=== PATIENT | female | born 1970 | race Caucasian/White ===

== ENCOUNTER → 2020-10-02 | Outpatient (CLI) | payer OTHER | LOC: WOUNDCARE 13:40 | PROVIDERS: ATTEND Nurse Practitioner | DX: I70.245 Atherosclerosis of native arteries of left leg with ulceration of other part of foot (principal); L97.522 Non-pressure chronic ulcer of other part of left foot with fat layer exposed; I73.9 Peripheral vascular disease, unspecified; M79.672 Pain in left foot; I10 Essential (primary) hypertension; Z87.891 Personal history of nicotine dependence; Z90.49 Acquired absence of other specified parts of digestive tract; Z95.5 Presence of coronary angioplasty implant and graft ==

== ENCOUNTER → 2020-10-09 | Outpatient (CLI) | payer OTHER | LOC: WOUNDCARE 03:01 | PROVIDERS: ATTEND Nurse Practitioner | DX: I70.245 Atherosclerosis of native arteries of left leg with ulceration of other part of foot (principal); L97.522 Non-pressure chronic ulcer of other part of left foot with fat layer exposed; I10 Essential (primary) hypertension; I73.9 Peripheral vascular disease, unspecified; M79.672 Pain in left foot; Z87.891 Personal history of nicotine dependence; Z90.49 Acquired absence of other specified parts of digestive tract; Z95.5 Presence of coronary angioplasty implant and graft ==

== ENCOUNTER → 2020-11-20 | Outpatient (CLI) | payer OTHER | LOC: WOUNDCARE 11-19 10:46 | PROVIDERS: ATTEND Nurse Practitioner | DX: T81.31XD Disruption of external operation (surgical) wound, not elsewhere classified, subsequent encounter (principal); S81.801D Unspecified open wound, right lower leg, subsequent encounter; S71.102D Unspecified open wound, left thigh, subsequent encounter; L97.528 Non-pressure chronic ulcer of other part of left foot with other specified severity; I10 Essential (primary) hypertension; I73.9 Peripheral vascular disease, unspecified; B49 Unspecified mycosis; Z87.891 Personal history of nicotine dependence; Z95.5 Presence of coronary angioplasty implant and graft; Z90.49 Acquired absence of other specified parts of digestive tract; Y83.5 Amputation of limb(s) as the cause of abnormal reaction of the patient, or of later complication, without mention of misadventure at the time of the procedure ==

== ENCOUNTER → 2020-12-07 | Outpatient (CLI) | payer OTHER | LOC: WOUNDCARE 05:12 | PROVIDERS: ATTEND Nurse Practitioner | DX: T81.31XD Disruption of external operation (surgical) wound, not elsewhere classified, subsequent encounter (principal); S81.801D Unspecified open wound, right lower leg, subsequent encounter; S71.102D Unspecified open wound, left thigh, subsequent encounter; L97.528 Non-pressure chronic ulcer of other part of left foot with other specified severity; I10 Essential (primary) hypertension; I73.9 Peripheral vascular disease, unspecified; B49 Unspecified mycosis; Z87.891 Personal history of nicotine dependence; Z95.5 Presence of coronary angioplasty implant and graft; Z90.49 Acquired absence of other specified parts of digestive tract; Y83.5 Amputation of limb(s) as the cause of abnormal reaction of the patient, or of later complication, without mention of misadventure at the time of the procedure ==

== ENCOUNTER → 2020-12-15 | Outpatient (CLI) | payer OTHER | LOC: WOUNDCARE 01:22 | PROVIDERS: ATTEND Nurse Practitioner | DX: T81.31XD Disruption of external operation (surgical) wound, not elsewhere classified, subsequent encounter (principal); S81.801D Unspecified open wound, right lower leg, subsequent encounter; S71.102D Unspecified open wound, left thigh, subsequent encounter; L97.528 Non-pressure chronic ulcer of other part of left foot with other specified severity; I10 Essential (primary) hypertension; I73.9 Peripheral vascular disease, unspecified; B49 Unspecified mycosis; Z87.891 Personal history of nicotine dependence; Z95.5 Presence of coronary angioplasty implant and graft; Z90.49 Acquired absence of other specified parts of digestive tract; X58.XXXD Exposure to other specified factors, subsequent encounter; Y83.5 Amputation of limb(s) as the cause of abnormal reaction of the patient, or of later complication, without mention of misadventure at the time of the procedure ==

== ENCOUNTER → 2020-12-23 | Outpatient (CLI) | payer OTHER | LOC: WOUNDCARE 05:36 | PROVIDERS: ATTEND Nurse Practitioner | DX: T81.31XD Disruption of external operation (surgical) wound, not elsewhere classified, subsequent encounter (principal); S81.801D Unspecified open wound, right lower leg, subsequent encounter; S71.102D Unspecified open wound, left thigh, subsequent encounter; L97.528 Non-pressure chronic ulcer of other part of left foot with other specified severity; I10 Essential (primary) hypertension; I73.9 Peripheral vascular disease, unspecified; B49 Unspecified mycosis; Z87.891 Personal history of nicotine dependence; X58.XXXD Exposure to other specified factors, subsequent encounter ==

== ENCOUNTER → 2020-12-30 | Outpatient (CLI) | payer OTHER | LOC: WOUNDCARE 02:14 | PROVIDERS: ATTEND Nurse Practitioner | DX: T81.31XD Disruption of external operation (surgical) wound, not elsewhere classified, subsequent encounter (principal); S81.801D Unspecified open wound, right lower leg, subsequent encounter; S71.102D Unspecified open wound, left thigh, subsequent encounter; L97.528 Non-pressure chronic ulcer of other part of left foot with other specified severity; I10 Essential (primary) hypertension; I73.9 Peripheral vascular disease, unspecified; B49 Unspecified mycosis; Z87.891 Personal history of nicotine dependence; X58.XXXD Exposure to other specified factors, subsequent encounter; Y83.8 Other surgical procedures as the cause of abnormal reaction of the patient, or of later complication, without mention of misadventure at the time of the procedure ==

== ENCOUNTER → 2021-01-07 | Outpatient (CLI) | payer OTHER | LOC: WOUNDCARE 01-06 00:57 | PROVIDERS: ATTEND Nurse Practitioner | DX: T81.31XD Disruption of external operation (surgical) wound, not elsewhere classified, subsequent encounter (principal); S81.801D Unspecified open wound, right lower leg, subsequent encounter; S71.102D Unspecified open wound, left thigh, subsequent encounter; L97.528 Non-pressure chronic ulcer of other part of left foot with other specified severity; I10 Essential (primary) hypertension; I73.9 Peripheral vascular disease, unspecified; B49 Unspecified mycosis; Z87.891 Personal history of nicotine dependence; X58.XXXD Exposure to other specified factors, subsequent encounter; Y83.8 Other surgical procedures as the cause of abnormal reaction of the patient, or of later complication, without mention of misadventure at the time of the procedure ==

== ENCOUNTER → 2021-01-14 | Outpatient (CLI) | payer OTHER | LOC: WOUNDCARE 01:58 | PROVIDERS: ATTEND Nurse Practitioner | DX: T81.31XD Disruption of external operation (surgical) wound, not elsewhere classified, subsequent encounter (principal); S81.801D Unspecified open wound, right lower leg, subsequent encounter; S71.102D Unspecified open wound, left thigh, subsequent encounter; L97.528 Non-pressure chronic ulcer of other part of left foot with other specified severity; I10 Essential (primary) hypertension; I73.9 Peripheral vascular disease, unspecified; B49 Unspecified mycosis; Z87.891 Personal history of nicotine dependence; X58.XXXD Exposure to other specified factors, subsequent encounter; Y83.8 Other surgical procedures as the cause of abnormal reaction of the patient, or of later complication, without mention of misadventure at the time of the procedure ==

== ENCOUNTER → 2021-01-21 | Outpatient (CLI) | payer OTHER | LOC: WOUNDCARE 01:41 | PROVIDERS: ATTEND Nurse Practitioner Primary Care | DX: T81.31XD Disruption of external operation (surgical) wound, not elsewhere classified, subsequent encounter (principal); L97.528 Non-pressure chronic ulcer of other part of left foot with other specified severity; S81.801D Unspecified open wound, right lower leg, subsequent encounter; S71.102D Unspecified open wound, left thigh, subsequent encounter; I10 Essential (primary) hypertension; I73.9 Peripheral vascular disease, unspecified; B49 Unspecified mycosis; Z87.891 Personal history of nicotine dependence; X58.XXXD Exposure to other specified factors, subsequent encounter; Y83.8 Other surgical procedures as the cause of abnormal reaction of the patient, or of later complication, without mention of misadventure at the time of the procedure ==

== ENCOUNTER 2021-05-27 20:17 | Emergency (ER) | payer OTHER ==
[~2021-05-27] VITALS: Ht 160 cm; Wt 117.9 kg
[2021-05-27] MEDS ORDERED: PLAVIX75 M1 PO (20:26)
[2021-05-27] MEDS ORDERED: ELIQUIS5 M1 PO (20:26)
[2021-05-27] MEDS ORDERED: LEXAPRO10 MG PO (20:26)
[2021-05-27] MEDS ORDERED: PRILOSEC20 M1 PO (20:26)
[2021-05-27] MEDS ORDERED: LIPITOR80 MG PO (20:27)
[2021-05-27] MEDS ORDERED: NEURONTIN300 MG PO (20:27)
[2021-05-27] MEDS ORDERED: 'TENORMIN50 MG PO (20:27)
[2021-05-27] MEDS ORDERED: TRAZODONE50 MG PO (20:28)
[2021-05-27] MEDS ORDERED: OXYCODONE5 M1 PO (20:28)
== END 2021-05-28 01:42 | disposition short-term general hospital (02) ==
LOC: ED 20:17
DX: I73.9 Peripheral vascular disease, unspecified (principal); Z88.1 Allergy status to other antibiotic agents; Z79.899 Other long term (current) drug therapy

== ENCOUNTER 2021-11-07 18:02 | Emergency (ER) | payer OTHER ==
[~2021-11-07] VITALS: Wt 109.3 kg
[~2021-11-07 18:02] MED LIST: 'TENORMIN50 MG PO; ELIQUIS5 M1 PO; LEXAPRO10 MG PO; LIPITOR80 MG PO; NEURONTIN300 MG PO; OXYCODONE5 M1 PO; PLAVIX75 M1 PO; PRILOSEC20 M1 PO; TRAZODONE50 MG PO
[2021-11-07] MEDS ORDERED: METHOCARBAMOL500 M1 PO (18:28)
== END 2021-11-07 20:41 | disposition home or self-care (01) ==
LOC: ED 18:02
DX: M79.605 Pain in left leg (principal); Z48.01 Encounter for change or removal of surgical wound dressing; Z88.1 Allergy status to other antibiotic agents; Z79.899 Other long term (current) drug therapy